=== PATIENT | male | born 1990 | race Caucasian/White ===

== ENCOUNTER 2018-06-12 20:33 | Emergency (ER) | payer SELFPAY ==
[~2018-06-12] VITALS: Ht 188 cm; Wt 90.9 kg
[2018-06-12 21:15] VITALS: BP 158/88
[2018-06-12] MEDS ORDERED: IBUPROFEN 800 MG TABLET PO ONE (21:15)
[2018-06-12] MEDS ORDERED: LIDOCAINE 1% 10 ML VIAL INJ ONE (21:15)
[2018-06-12] MEDS ORDERED: POVIDONE-IODINE 10% 15 ML SOLUTION UD TP ONE (21:15)
== END 2018-06-12 22:19 | disposition home or self-care (01) ==
LOC: EMS 20:34
DX: L02.01 Cutaneous abscess of face (principal); F12.90 Cannabis use, unspecified, uncomplicated
CPT/HCPCS: 10060; 99283; J3490

== ENCOUNTER 2018-06-15 21:38 | Emergency (ER) | payer SELFPAY ==
[~2018-06-15] VITALS: Ht 185.4 cm; Wt 90.9 kg
[2018-06-15 22:11] VITALS: BP 140/72
== END 2018-06-15 22:49 | disposition home or self-care (01) ==
LOC: EMS 21:41
DX: Z48.01 Encounter for change or removal of surgical wound dressing (principal); F12.90 Cannabis use, unspecified, uncomplicated
CPT/HCPCS: 99283